=== PATIENT | male | born 1990 | race Two or more races ===

== ENCOUNTER 2017-11-23 22:41 | Emergency (ER) | payer OTHER ==
[~2017-11-23] VITALS: Ht 175.3 cm; Wt 106.6 kg
[2017-11-24] MEDS ORDERED: DOLOGESIC-DF 51 EACH PO (03:18)
== END 2017-11-24 03:26 | disposition home or self-care (01) ==
LOC: ER 22:41 → EDSEX 22:57 → ER 22:57
DX: R51 Headache (principal)